=== PATIENT | female | born 1990 | race Two or more races ===

== ENCOUNTER 2024-03-25 12:57 | Inpatient (IN) | payer OTHER ==
[2024-03-25 14:48] LABS: HEMATOCRIT 43.7 % (32.4-45.2); HEMOGLOBIN 14.5 GM/dL (10.7-15.3); MCH 31.5 pg (25.7-33.7); MCHC 33.2 g/dl (32.0-36.0); MEAN CELL VOLUME 95.1 fl (80-96); MEAN PLT VOLUME 7.4 fl (7.5-11.1); PLATELET COUNT 274 10^3/uL (134-434); RDW 13.3 % (11.6-15.6); WHITE BLOOD COUNT 8.1 K/mm3 (4.0-10.0)
[2024-03-25 14:49] LABS: VENOUS BASE EXCESS -20.2 mmol/L (-2-2); VENOUS O2 SATURATION 31.1 % (70-80); VENOUS PCO2 26.2 mmHg (38-52)
[2024-03-25] MEDS: SODIUM CHLORIDE 0.9% 500 ML INFUS.BAG IV ONE (14:52)
[2024-03-25 14:55] LABS: EPI CELLS 4 /uL (0-25.1); HYALINE CASTS 1 /uL (0-3.1); URINE APPEARANCE CLEAR; URINE BACTERIA 19 /uL (0-1359); URINE BILIRUBIN NEGATIVE (NEGATIVE); URINE COLOR YELLOW; URINE GLUCOSE (UA) 3+ (NEGATIVE); URINE KETONE 4+ (NEGATIVE); URINE LEUK ESTERASE NEGATIVE (NEGATIVE); URINE NITRITE NEGATIVE (NEGATIVE); URINE PROTEIN 1+ (NEGATIVE); URINE RBC 14 /uL (0-23.9); URINE UROBILINOGEN 0.2 mg/dL (0.2-1.0); URINE WBC 2 /uL (0-25.8)
[2024-03-25 14:58] LABS: VENOUS PH 7.1 (7.310-7.410)
[2024-03-25 15:08] LABS: POTASSIUM 3.6 mmol/L (3.5-5.1)
[2024-03-25 15:10] LABS: CALCIUM 9.3 mg/dL (8.5-10.1)
[2024-03-25 15:11] LABS: ALBUMIN 3.9 g/dl (3.4-5.0); BLOOD UREA NITROGEN 6.3 mg/dL (7-18); MAGNESIUM 1.6 mg/dL (1.8-2.4)
[2024-03-25 15:14] LABS: CREATININE 0.8 mg/dL (0.55-1.3)
[2024-03-25 15:15] LABS: BILIRUBIN,TOTAL 0.6 mg/dL (0.2-1); TOT PROT 8.3 g/dl (6.4-8.2)
[2024-03-25 15:41] LABS: ANISOCYTOSIS 0; HELMET CELLS 0; HOWELL-JOLLY BODIES 0; MACROCYTOSIS 0; OVALOCYTE 0; ROULEAU 0; SICKELED CELLS 0; TARGET CELLS 0; TEAR DROP CELLS 0; TOXIC GRANULATION 0
[2024-03-25] MEDS: SODIUM CHLORIDE 1,000 ML with POTASSIUM CHLORIDE 10 MEQ IV STA (16:10)
[2024-03-25] MEDS ORDERED: MAGNESIUM SULFATE IN WATER 2 GM/50 ML IVPB IVPB ONE (16:16)
[2024-03-25] MEDS: MAGNESIUM SULFATE IN WATER 2 GM/50 ML IVPB IVPB ONE (16:19)
[2024-03-25] MEDS: SODIUM CHLORIDE 1,000 ML with POTASSIUM CHLORIDE 20 MEQ IV STA (16:19)
[2024-03-25] MEDS ORDERED: INSULIN REGULAR HUMAN 100 UNITS/ML *VIAL ONE (16:26)
[2024-03-25] MEDS: INSULIN REGULAR HUMAN 100 UNITS/ML *VIAL IVPUSH ONE (16:30)
[2024-03-25] MEDS ORDERED: ACETAMINOPHEN INJECTION 100 ML ONE (17:08)
[2024-03-25] MEDS ORDERED: ONDANSETRON 4 MG/2 ML VIAL ONE ×2 (17:08→22:00)
[2024-03-25] MEDS: ACETAMINOPHEN 1000 MG/100 ML BAG IVPB ONE (17:12)
[2024-03-25] MEDS: ONDANSETRON 4 MG/2 ML VIAL IVPUSH ONE ×2 (17:12→22:10)
[2024-03-25] MEDS: INSULIN REGULAR 100 UNITS in SODIUM CHLORIDE 99 ML IVPB SCH ×3 (17:45→18:34)
[2024-03-25 18:02] VITALS: BMI 24.4
[2024-03-25] MEDS ORDERED: DEXTROSE 50%-WATER 25 GM/50 ML DISP.SYRIN ONE (18:11)
[2024-03-25] MEDS: DEXTROSE 50%-WATER 25 GM/50 ML DISP.SYRIN IVPUSH ONE (18:21)
[2024-03-25 18:58] LABS: CHLORIDE 111 mmol/L (98-107); POTASSIUM 3.2 mmol/L (3.5-5.1); SODIUM 136 mmol/L (136-145)
[2024-03-25 19:00] LABS: ANION GAP 18 mmol/L (4-13); BLOOD UREA NITROGEN 3.3 mg/dL (7-18); CO2 8 mmol/L (21-32); MAGNESIUM 1.9 mg/dL (1.8-2.4)
[2024-03-25 19:01] LABS: ALBUMIN 2.7 g/dl (3.4-5.0); CALCIUM 7.3 mg/dL (8.5-10.1); GLUCOSE,RANDOM 401 mg/dL (74-106)
[2024-03-25 19:03] LABS: CREATININE 0.6 mg/dL (0.55-1.3); SGOT/AST 26 U/L (15-37); SGPT/ALT 19 U/L (13-61)
[2024-03-25 19:05] LABS: BILIRUBIN,TOTAL 0.4 mg/dL (0.2-1)
[2024-03-25 19:07] LABS: ALK PHOS 67 U/L (45-117); PHOSPHOROUS 1.2 mg/dL (2.5-4.9); TOT PROT 5.9 g/dl (6.4-8.2)
[2024-03-25] MEDS ORDERED: POTASSIUM CHLORIDE 10 MEQ in DEXTROSE 5%-NORMAL SALINE 1,000 ML IVPB SCH (20:00)
[2024-03-25] MEDS ORDERED: POTASSIUM CHLORIDE ORAL LIQUID 20 MEQ/15 ML ONE (20:04)
[2024-03-25] MEDS: POTASSIUM CHLORIDE ORAL LIQUID 20 MEQ/15 ML PO ONE (20:06)
[2024-03-25] MEDS: SODIUM CHLORIDE 0.9%/KCL 20 MEQ/1,000 ML INFUS.BAG IV SCH ×2 (20:12→23:03)
[2024-03-25] MEDS: POTASSIUM CHLORIDE 20 MEQ in LACTATED RINGERS SOLUTION 1,000 ML IV ONE (20:12)
[2024-03-25 20:18] LABS: CHLORIDE 113 mmol/L (98-107); POTASSIUM 3.4 mmol/L (3.5-5.1); SODIUM 136 mmol/L (136-145)
[2024-03-25 20:20] LABS: CALCIUM 7.7 mg/dL (8.5-10.1)
[2024-03-25 20:21] LABS: ANION GAP 14 mmol/L (4-13); CO2 9 mmol/L (21-32); GLUCOSE,RANDOM 225 mg/dL (74-106)
[2024-03-25 20:23] LABS: BLOOD UREA NITROGEN 2.7 mg/dL (7-18)
[2024-03-25 20:24] LABS: CREATININE 0.6 mg/dL (0.55-1.3)
[2024-03-25] MEDS ORDERED: KCL 10 MEQ IVPB 10 MEQ/100 ML INFUS.BAG IVPB SCH (20:45)
[2024-03-25] MEDS: KCL 10 MEQ IVPB 10 MEQ/100 ML INFUS.BAG IVPB SCH (21:10)
[2024-03-25] MEDS ORDERED: NAPH,MB-DB/K PH,MBDB POWDER PACKET ONE (21:46)
[2024-03-25] MEDS: D5-1/2NS+20 MEQ KCL - 20 MEQ/1,000 ML INFUS.BAG IV SCH (21:56)
[2024-03-25] MEDS ORDERED: ACETAMINOPHEN 500 MG TABLET (FP) ONE (22:01)
[2024-03-25] MEDS: ACETAMINOPHEN 500 MG TABLET (FP) PO ONE (22:10)
[2024-03-25] MEDS: NAPH,MB-DB/K PH,MBDB POWDER PACKET PO ONE (22:10)
[2024-03-25 23:39] LABS: CHLORIDE 117 mmol/L (98-107); POTASSIUM 3.9 mmol/L (3.5-5.1); SODIUM 140 mmol/L (136-145)
[2024-03-25 23:41] LABS: ANION GAP 14 mmol/L (4-13); CALCIUM 7.5 mg/dL (8.5-10.1); CO2 9 mmol/L (21-32)
[2024-03-25 23:42] LABS: GLUCOSE,RANDOM 162 mg/dL (74-106)
[2024-03-25 23:44] LABS: BLOOD UREA NITROGEN 2.2 mg/dL (7-18)
[2024-03-25 23:45] LABS: CREATININE 0.6 mg/dL (0.55-1.3)
[2024-03-26] MEDS: MUPIROCIN 2% TOPICAL OINTMENT FOR DECOLONIZATION NS SCH (03:10)
[2024-03-26] MEDS: INSULIN REGULAR 100 UNITS in SODIUM CHLORIDE 99 ML IVPB SCH ×2 (03:11)
[2024-03-26] MEDS: CHLORHEXIDINE GLUCONATE 4% CLEANSER FOR DECOLONIZATION TP SCH (03:11)
[2024-03-26] MEDS: POTASSIUM PHOSPHATE 15 MM in SODIUM CHLORIDE 250 ML IVPB ONE (04:00)
[2024-03-26 04:57] LABS: CHLORIDE 117 mmol/L (98-107); POTASSIUM 4.6 mmol/L (3.5-5.1); SODIUM 139 mmol/L (136-145)
[2024-03-26 04:58] LABS: CALCIUM 7.7 mg/dL (8.5-10.1)
[2024-03-26 04:59] LABS: ANION GAP 11 mmol/L (4-13); CO2 10 mmol/L (21-32); GLUCOSE,RANDOM 209 mg/dL (74-106)
[2024-03-26 05:02] LABS: CREATININE 0.5 mg/dL (0.55-1.3)
[2024-03-26 05:32] LABS: BLOOD UREA NITROGEN 1.6 mg/dL (7-18)
[2024-03-26 08:03] LABS: BASO % 0.5 % (0-2.0); HEMATOCRIT 36.5 % (32.4-45.2); HEMOGLOBIN 12.3 GM/dL (10.7-15.3); LYMPH % 14.5 % (8-40); MCH 31.5 pg (25.7-33.7); MCHC 33.6 g/dl (32.0-36.0); MEAN CELL VOLUME 93.8 fl (80-96); MEAN PLT VOLUME 7.1 fl (7.5-11.1); MONO % 8.4 % (3.8-10.2); NEUT % 76.6 % (42.8-82.8); PLATELET COUNT 212 10^3/uL (134-434); RBC 3.89 M/mm3 (3.60-5.2); RDW 13.1 % (11.6-15.6); WHITE BLOOD COUNT 4.7 K/mm3 (4.0-10.0)
[2024-03-26 08:14] LABS: MAGNESIUM 1.5 mg/dL (1.8-2.4)
[2024-03-26 08:50] LABS: CHLORIDE 115 mmol/L (98-107); POTASSIUM 3.7 mmol/L (3.5-5.1); SODIUM 137 mmol/L (136-145)
[2024-03-26 08:52] LABS: ANION GAP 13 mmol/L (4-13); CO2 10 mmol/L (21-32); GLUCOSE,RANDOM 193 mg/dL (74-106)
[2024-03-26 08:55] LABS: CREATININE 0.5 mg/dL (0.55-1.3)
[2024-03-26 08:56] LABS: BLOOD UREA NITROGEN 1.4 mg/dL (7-18)
[2024-03-26] MEDS ORDERED: ONDANSETRON 4 MG/2 ML VIAL ONE (09:01)
[2024-03-26] MEDS ORDERED: ACETAMINOPHEN INJECTION 100 ML ONE (09:01)
[2024-03-26] MEDS: ACETAMINOPHEN 1000 MG/100 ML BAG IVPB ONE (09:16)
[2024-03-26] MEDS: DEXTROSE 5%-0.45% SALINE 1,000 ML IV SCH (09:16)
[2024-03-26] MEDS: ONDANSETRON 4 MG/2 ML VIAL IVPUSH ONE (09:16)
[2024-03-26] MEDS ORDERED: SERTRALINE HCL 50 MG TABLET (FP) ONE (09:25)
[2024-03-26] MEDS ORDERED: AMOX TR/POT CLAV 875MG/125MG TABLETS (FP) ONE (09:25)
[2024-03-26] MEDS ORDERED: ENOXAPARIN NA (PORCINE) 40 MG/0.4 ML DISP.SYRIN SQ ONE (09:26)
[2024-03-26] MEDS: AMOX TR/POT CLAV 875MG/125MG TABLETS (FP) PO SCH (09:36)
[2024-03-26] MEDS: SERTRALINE HCL 50 MG TABLET (FP) PO SCH (09:37)
[2024-03-26] MEDS: ENOXAPARIN NA (PORCINE) 40 MG/0.4 ML DISP.SYRIN SQ SCH (09:37)
[2024-03-26] MEDS ORDERED: MAGNESIUM SULFATE IN WATER 2 GM/50 ML IVPB IVPB ONE (10:56)
[2024-03-26] MEDS: MAGNESIUM 2GM/50ML STERILE WATER IVPB IVPB ONE (11:15)
[2024-03-26] MEDS: POTASSIUM PHOSPHATE 30 MM in DEXTROSE 5%-WATER - 500 ML IVPB ONE (11:15)
[2024-03-26] MEDS ORDERED: INSULIN (LEVEMIR) 100 UNITS/ML UNITS SQ ONE (11:18)
[2024-03-26] MEDS: INSULIN (LEVEMIR) 100 UNITS/ML UNITS SQ SCH ×2 (11:24→22:11)
[2024-03-26] MEDS: INSULIN ASPART SLIDING SCALE (NOVOLOG) 1 VIAL SQ SCH (12:25)
[2024-03-26 12:50] LABS: HIV INTERPRETATION NEGATIVE (NEGATIVE)
[2024-03-26] MEDS: CLINDAMYCIN 600MG PREMIX IVPB 600 MG/50 ML BAG IVPB SCH (14:08)
[2024-03-26 14:55] LABS: MAGNESIUM 1.6 mg/dL (1.8-2.4)
[2024-03-26 14:58] LABS: PHOSPHOROUS 1.3 mg/dL (2.5-4.9)
[2024-03-26 15:02] LABS: CHLORIDE 107 mmol/L (98-107); POTASSIUM 4.9 mmol/L (3.5-5.1); SODIUM 132 mmol/L (136-145)
[2024-03-26 15:03] LABS: CALCIUM 7.8 mg/dL (8.5-10.1)
[2024-03-26 15:04] LABS: ANION GAP 13 mmol/L (4-13); CO2 13 mmol/L (21-32); GLUCOSE,RANDOM 341 mg/dL (74-106)
[2024-03-26 15:07] LABS: CREATININE 0.6 mg/dL (0.55-1.3)
[2024-03-26 15:10] LABS: BLOOD UREA NITROGEN 1.1 mg/dL (7-18)
[2024-03-26] MEDS: LACTATED RINGERS SOLUTION 1,000 ML/1,000 ML INFUS.BAG IV SCH (15:57)
[2024-03-26] MEDS: NAPH,MB-DB/K PH,MBDB POWDER PACKET PO SCH (15:58)
[2024-03-26] MEDS: METOCLOPRAMIDE HCL INJECTION 10 MG/2 ML VIAL IVPUSH ONE (18:19)
[2024-03-26] MEDS: POLYETHYLENE GLYCOL (HEALTHYLAX) 3350 17 GM PACKET PO ONE (21:34)
[2024-03-26] MEDS ORDERED: CHLORHEXIDINE GLUCONATE 4% CLEANSER FOR DECOLONIZATION TP SCH (22:00)
[2024-03-26] MEDS ORDERED: MUPIROCIN 2% TOPICAL OINTMENT FOR DECOLONIZATION NS SCH (22:00)
[2024-03-27] MEDS: ACETAMINOPHEN 500 MG TABLET (FP) PO PRN (08:49)
[2024-03-27] MEDS: ONDANSETRON 4 MG/2 ML VIAL IVPUSH PRN (08:50)
[2024-03-27 09:04] LABS: HEMATOCRIT 37.5 % (32.4-45.2); HEMOGLOBIN 13.3 GM/dL (10.7-15.3); MCHC 35.5 g/dl (32.0-36.0); MEAN CELL VOLUME 90.4 fl (80-96); MEAN PLT VOLUME 6.9 fl (7.5-11.1); PLATELET COUNT 216 10^3/uL (134-434); RBC 4.15 M/mm3 (3.60-5.2); RDW 12.9 % (11.6-15.6); WHITE BLOOD COUNT 3.9 K/mm3 (4.0-10.0)
[2024-03-27 09:18] LABS: CHLORIDE 111 mmol/L (98-107); SODIUM 141 mmol/L (136-145)
[2024-03-27 09:21] LABS: CALCIUM 8.8 mg/dL (8.5-10.1)
[2024-03-27 09:22] LABS: ALBUMIN 2.8 g/dl (3.4-5.0); ANION GAP 11 mmol/L (4-13); CO2 19 mmol/L (21-32); GLUCOSE,RANDOM 85 mg/dL (74-106); MAGNESIUM 1.6 mg/dL (1.8-2.4)
[2024-03-27 09:25] LABS: CREATININE 0.3 mg/dL (0.55-1.3); PHOSPHOROUS 1.9 mg/dL (2.5-4.9); SGOT/AST 33 U/L (15-37); SGPT/ALT 30 U/L (13-61)
[2024-03-27 09:27] LABS: BILIRUBIN,TOTAL 0.7 mg/dL (0.2-1); TOT PROT 6.3 g/dl (6.4-8.2)
[2024-03-27 09:28] LABS: ALK PHOS 72 U/L (45-117)
[2024-03-27] MEDS ORDERED: POTASSIUM CHLORIDE ORAL LIQUID 20 MEQ/15 ML PO ONE (09:30)
[2024-03-27] MEDS: ENOXAPARIN NA (PORCINE) 40 MG/0.4 ML DISP.SYRIN SQ SCH (10:52)
[2024-03-27] MEDS: SERTRALINE HCL 50 MG TABLET (FP) PO SCH (10:52)
[2024-03-27] MEDS: POTASSIUM CHLORIDE ORAL LIQUID 20 MEQ/15 ML PO ONE (11:56)
[2024-03-27] MEDS: POTASSIUM PHOSPHATE 30 MM in SODIUM CHLORIDE 500 ML IVPB ONE (11:56)
[2024-03-27] MEDS ORDERED: CEFTRIAXONE 1 GM in DEXTROSE 5%-WATER - 50 ML IVPB SCH (12:30)
[2024-03-27 12:39] LABS: BLOOD UREA NITROGEN 1.3 mg/dL (7-18)
[2024-03-27] MEDS: DOXYCYCLINE INJECTION 100 MG in DEXTROSE 5%-WATER 100 ML IVPB SCH (13:13)
[2024-03-27] MEDS: CEFTRIAXONE 1 G/50 ML PREMIX 50 ML IVPB SCH (14:45)
[2024-03-27 14:56] VITALS: RESP 18
[2024-03-27] MEDS: MAGNESIUM 2GM/50ML STERILE WATER IVPB IVPB ONE (15:53)
[2024-03-28 11:40] LABS: CHLORIDE 107 mmol/L (98-107); POTASSIUM 3.4 mmol/L (3.5-5.1); SODIUM 141 mmol/L (136-145)
[2024-03-28 11:42] LABS: ANION GAP 11 mmol/L (4-13); CALCIUM 9.1 mg/dL (8.5-10.1); CO2 24 mmol/L (21-32); GLUCOSE,RANDOM 215 mg/dL (74-106); MAGNESIUM 1.8 mg/dL (1.8-2.4)
[2024-03-28 11:45] LABS: CREATININE 0.3 mg/dL (0.55-1.3)
[2024-03-28 11:46] LABS: PHOSPHOROUS 2.6 mg/dL (2.5-4.9)
[2024-03-28 11:48] LABS: BLOOD UREA NITROGEN 2.9 mg/dL (7-18)
[2024-03-28] MEDS: POTASSIUM CHLORIDE ORAL LIQUID 20 MEQ/15 ML PO ONE (12:43)
[2024-03-28 14:03] VITALS: BP 122/96; PULSE 101; TEMP 98.8
== END 2024-03-28 14:15 | disposition home or self-care (01) | DRG 420 ==
LOC: JER 12:57 → JERBED 17:07 → J5S 03-26 15:09
PROVIDERS: ADMIT Internal Medicine Pulmonary Disease; ATTEND Internal Medicine
DX: E11.10 Type 2 diabetes mellitus with ketoacidosis without coma (principal); F32.A Depression, unspecified; L02.214 Cutaneous abscess of groin; E83.42 Hypomagnesemia; E87.6 Hypokalemia; E83.39 Other disorders of phosphorus metabolism; F41.9 Anxiety disorder, unspecified; E78.5 Hyperlipidemia, unspecified
CPT/HCPCS: 0241U-QW; 36415; 71046-TC-FY; 80048; 80053; 81003; 82010; 82803; 82962; 83690; 83735; 84100; 84439; 84443; 84703; 85025; 85027; 86803; 87070; 87077; 87086; 87205; 87389; 93005; 93010; 99291; J0131